=== PATIENT | female | born 1955 | race Caucasian/White ===

== ENCOUNTER → 2019-06-14 14:01 | Outpatient (BNVA) | payer MEDICARE, MEDICAID, SELFPAY | PROVIDERS: Visit Provider Nurse Practitioner | DX: F33.0 Major depressive disorder, recurrent, mild (principal); F41.1 Generalized anxiety disorder | CPT/HCPCS: 99213 ==

== ENCOUNTER 2019-06-20 16:00 | Outpatient (CLI) | payer MEDICARE, MEDICAID, SELFPAY ==
--- NOTE | 2019-06-20 16:20 | XR_ITS ---
WS: [id number] KNEE LEFT TECHNIQUE: 2 views of the left knee CLINICAL INFORMATION: OSTEOARTHRITIS OF LEFT KNEE COMPARISON: None. FINDINGS: Osteopenia. Advanced degenerative arthritis medial joint compartment with [id number] articulation. Hypertrophic changes along the joint line. Hypertrophic patella. No significant effusion. XR/XR knee LT 1-2V [id number] IMPRESSION: Advanced degenerative arthritis left knee with [id number] articulation the me dial joint compartment
--- NOTE | 2019-06-20 16:22 | XR_ITS ---
WS: [id number] KNEE RIGHT TECHNIQUE: 3 views of the right knee CLINICAL INFORMATION: OSTEOARTHRITIS OF RT KNEE COMPARISON: None. FINDINGS: Advanced degenerative arthritis right knee worse in the medial joint compartment with severe narrowin g. Osteopenia. Hypertrophic changes along the joint line. Hypertrophic patella. No significant effusi on. XR/XR knee RT 3V* [id number] IMPRESSION: Moderate to severe joint space narrowing medial joint compartment
== END 2019-06-20 16:01 | disposition home or self-care (01) ==
LOC: RADWPI 16:06
PROVIDERS: PCP Family Medicine; Visit Provider Family Medicine
DX: M17.0 Bilateral primary osteoarthritis of knee (principal)
CPT/HCPCS: 73560; 73562

== ENCOUNTER → 2019-09-06 07:45 | Outpatient (BNVA) | payer MEDICARE, MEDICAID, SELFPAY | PROVIDERS: PCP Family Medicine; Visit Provider Nurse Practitioner | DX: F41.1 Generalized anxiety disorder (principal); F33.0 Major depressive disorder, recurrent, mild; F43.12 Post-traumatic stress disorder, chronic | CPT/HCPCS: 99213 ==

== ENCOUNTER → 2019-12-03 09:45 | Outpatient (BNVA) | payer MEDICARE, MEDICAID, SELFPAY | PROVIDERS: PCP Family Medicine; Visit Provider Nurse Practitioner | DX: F41.1 Generalized anxiety disorder (principal); F33.0 Major depressive disorder, recurrent, mild | CPT/HCPCS: 99214 ==

== ENCOUNTER → 2019-12-12 15:36 | Outpatient (BNVA) | payer MEDICARE, MEDICAID, SELFPAY | PROVIDERS: PCP Family Medicine; Visit Provider Social Worker Clinical | DX: F41.1 Generalized anxiety disorder (principal); F33.0 Major depressive disorder, recurrent, mild | CPT/HCPCS: 90834 ==

== ENCOUNTER → 2020-02-25 08:30 | Outpatient (BNVA) | payer MEDICARE, MEDICAID, SELFPAY | PROVIDERS: PCP Family Medicine; Visit Provider Nurse Practitioner | DX: F41.1 Generalized anxiety disorder (principal); F33.0 Major depressive disorder, recurrent, mild | CPT/HCPCS: 99213 ==

== ENCOUNTER → 2020-05-20 08:29 | Outpatient (BNVA) | payer MEDICARE, MEDICAID, SELFPAY | PROVIDERS: PCP Family Medicine; Visit Provider Nurse Practitioner | DX: F41.1 Generalized anxiety disorder (principal); F33.0 Major depressive disorder, recurrent, mild | CPT/HCPCS: 99214 ==

== ENCOUNTER → 2020-08-04 09:24 | Outpatient (BNVA) | payer MEDICARE, MEDICAID, SELFPAY | PROVIDERS: PCP Family Medicine; Visit Provider Nurse Practitioner | DX: F41.1 Generalized anxiety disorder (principal); F33.0 Major depressive disorder, recurrent, mild | CPT/HCPCS: 99214 ==

== ENCOUNTER → 2020-10-29 08:02 | Outpatient (BNVA) | payer MEDICARE, MEDICAID, SELFPAY | PROVIDERS: PCP Family Medicine; Visit Provider Nurse Practitioner | DX: F41.1 Generalized anxiety disorder (principal); F33.0 Major depressive disorder, recurrent, mild | CPT/HCPCS: 99214 ==

== ENCOUNTER → 2021-01-07 07:42 | Outpatient (BNVA) | payer MEDICARE, MEDICAID, SELFPAY | PROVIDERS: PCP Family Medicine; Visit Provider Nurse Practitioner | DX: F41.1 Generalized anxiety disorder (principal); F33.0 Major depressive disorder, recurrent, mild | CPT/HCPCS: 99214 ==

== ENCOUNTER → 2022-11-17 16:41 | Outpatient (BNVA) | payer MEDICARE, MEDICAID, SELFPAY | PROVIDERS: PCP Family Medicine; Visit Provider Emergency Medicine | DX: E66.9 Obesity, unspecified (principal) | CPT/HCPCS: 82306; 84443 ==

== ENCOUNTER → 2024-05-13 08:32 | Outpatient (BNVA) | payer MEDICARE, SELFPAY | PROVIDERS: PCP Family Medicine; Visit Provider Family Medicine | DX: E03.9 Hypothyroidism, unspecified (principal); I10 Essential (primary) hypertension; R73.03 Prediabetes; M25.562 Pain in left knee; F41.1 Generalized anxiety disorder; F33.0 Major depressive disorder, recurrent, mild; K58.9 Irritable bowel syndrome, unspecified; G47.00 Insomnia, unspecified; I89.0 Lymphedema, not elsewhere classified; K08.9 Disorder of teeth and supporting structures, unspecified; G89.29 Other chronic pain; Z12.31 Encounter for screening mammogram for malignant neoplasm of breast; R01.1 Cardiac murmur, unspecified | CPT/HCPCS: 80053; 80061; 83036; 84439; 84443; 85025 ==

== ENCOUNTER 2024-07-22 15:07 | Emergency (ER) | payer MEDICARE, MEDICAID, SELFPAY ==
[2024-07-22 15:28] VITALS: BP 123/80; PULSE 69; RESP 16; TEMP 37.2; O2SAT 100
--- NOTE | 2024-07-22 16:12 | W.ED.BACK ---
Documented by User: CANDY Brothers 07/22/24 16:46 HPI - Back Pain/Injury General: Chief Complaint: Back Pain/Injury Stated Complaint: L side back pain Time Seen by Provider: 07/22/24 15:45 Source: patient Mode of arrival: wheelchair Limitations: no limitations History of Present Illness: Patient is a 68-year-old female presents to ED today with a complaint of left lower back pain over the past 2 days or so. She states she has a longstanding history of sciatica. She feels like her pain starts in her left lower back and radiates around into her groin and down the anterior aspect of her left upper leg as well as into her buttock. No known injury or trauma. She does not complain of numbness, tingling, loss of sensation to the extremity. She has not noticed any color or temperature changes. She is reporting trouble walking secondary to the pain that she feels like it spasms . She is not complaining of any urinary urgency or frequency or hematuria. No history of kidney or ureterolithiasis. She denies abdominal pain. MD elicited complaint: back pain Pertinent past history: prior back pain Onset (ago): day(s) Timing: constant Severity: severe Pain scale (0-10): 10 Similar Symptoms Previously: Yes Quality: burning Location: lumbar spine and left lower back Radiation: groin, buttocks and left upper leg Exacerbating factors: movement Relieving factors: none Associated symptoms: Reports difficulty walking; Deny abdominal pain, chills, dysuria, fatigue, fever(s) or hematuria Work related injury: No Related Data Home Medications ?Medication ?Instructions ?Recorded ?Confirmed amlodipine 10 mg tablet 10 mg PO DAILY 05/13/24 05/20/24 furosemide 40 mg tablet (Lasix) 20 mg PO DAILY 05/13/24 05/20/24 linaclotide 290 mcg capsule 290 mcg PO DAILY 05/13/24 05/20/24 (Linzess) Previous Rx's ?Medication ?Instructions ?Recorded estradiol 0.05 mg/24 hr weekly 1 patch topical .Weekly #4 ea 07/20/20 transdermal patch (Climara) meloxicam 7.5 mg tablet 7.5 mg PO DAILY #30 tabs 05/13/24 Synthroid 100 mcg tablet 100 mcg PO DAILY #90 tabs 05/15/24 (levothyroxine) Prozac 20 mg capsule (fluoxetine) 20 mg PO DAILY #30 caps 05/20/24 alprazolam 0.5 mg tablet (Xanax) 0.5 mg PO DAILY PRN anxiety 30 05/20/24 days #30 tabs zolpidem 12.5 mg tablet,extended 12.5 mg PO .at bed 30 days #30 tabs 05/20/24 release,multiphase hydroxyzine HCl 10 mg tablet 10 mg PO TID PRN itching #60 tabs 06/25/24 potassium chloride 10 mEq 10 meq PO DAILY #90 tabs 07/03/24 tablet,extended release atenolol 25 mg tablet 25 mg PO DAILY #90 tabs 07/08/24 methocarbamol 500 mg tablet 1,000 mg (2 x 500 mg) PO Q8H #30 07/22/24 tabs prednisone 10 mg tablet 10 mg PO DAILY 6 days #20 tabs 07/22/24 Allergies Allergy/AdvReac Type Severity Reaction Status Date / Time pseudoephedrine (From AdvReac Severe Rash And Verified 07/22/24 15:31 Actifed) constricts breathing Sulfa (Sulfonamide AdvReac Severe Rash & Verified 07/22/24 15:31 Antibiotics) breathing problems triprolidine (From Actifed) AdvReac Severe Rash & Verified 07/22/24 15:31 breathing problems clonazepam (From Klonopin) AdvReac Intermediate Makes mind Verified 07/22/24 15:31 race morphine AdvReac Intermediate Hallucinate Verified 07/22/24 15:31 Review of Systems Const: Denies: fever(s), chills, body aches, fatigue or malaise Card: Denies: chest pain Resp: Denies: dyspnea GI: Denies: abdominal pain : Denies: flank pain, dysuria or hematuria Musc: Reports: back pain; Denies: neck pain, extremity pain, extremity swelling, joint pain, joint swelling or joint redness Neuro: Reports: difficulty walking; Denies: numbness in extremities, weakness in extremities or sensory changes PFSH ED PFSH: Medical History Pre-diabetes Insomnia IBS (irritable bowel syndrome) Hypothyroidism Essential hypertension Psychiatric care Obesity Generalized anxiety disorder Major depressive disorder, recurrent, mild Surgical History H/O: hysterectomy History of tonsillectomy H/O lumpectomy Social History Smoking and tobacco/nicotine status: never used tobacco/nicotine Alcohol intake: never Substance/Drug Use: never Female Reproductive History: Spontaneous abortions: No Physical Exam Const: COMMON NORMALS: no acute distress, patient oriented x3, no limitations, alert and well nourished GENERAL APPEARANCE: cooperative NUTRITIONAL APPEARANCE: overweight ORIENTATION/CONSCIOUSNESS: Yes awake, Yes oriented to person, Yes oriented to place and Yes oriented to time OTHER: uncomfortable at times due to back pain Resp: COMMON NORMALS: normal respiratory effort and clear to auscultation bilaterally AUSCULTATION: clear to auscultation bilaterally Cardio: COMMON NORMALS: regular rate and regular rhythm RATE: regular rate RHYTHM: regular rhythm GI: COMMON NORMALS: Normal to inspection, nondistended, normoactive bowel sounds present, Soft to palpation, non-tender and no masses PALPATION: Yes Soft to palpation : COMMON NORMALS: Yes no CVA tenderness BLADDER/KIDNEY EXAM: Yes no CVA tenderness Back/Pelvis: COMMON NORMALS: no CVA tenderness, thoracic and lumbar spine normal to inspection and straight leg raise negative bilaterally LUMBAR SPINE/LOWER BACK: No lumbar spinal tenderness PELVIS: Yes sciatic notch tenderness SACROILIAC JOINTS: Yes SI joint(s) abnormal SI joint details: tender to palpation SACRUM: no tenderness COCCYX: no tenderness BACK IMAGE (FEMALE):  1. TTP Extremity: COMMON NORMALS: normal to inspection, full ROM, capillary refill normal, no joint enlargement, no clubbing, cyanosis or edema, no calf tenderness and no pedal edema GENERAL: Yes normal exam except as noted Neuro: COMMON NORMALS: patient oriented x3, moves all extremities, no focal motor deficits and no sensory deficits noted SENSORIUM/ORIENTATION: Yes alert, Yes oriented to person, Yes oriented to place and Yes oriented to time Skin: COMMON NORMALS: no rashes or lesions noted GENERAL SKIN EXAM: no rashes or lesions noted Course Vital Signs: Vital signs: Vital Signs Temperature 99.0 F 07/22/24 15:28 Pulse Rate 69 07/22/24 15:28 Respiratory Rate 16 07/22/24 15:28 Blood Pressure 123/80 07/22/24 15:28 Pulse Oximetry 100 07/22/24 15:28 Oxygen Delivery Me thod Room Air 07/22/24 15:28 Discharge Plan Discharge Patient Disposition: Home Clinical Impression: Low back pain radiating to left leg Condition: Stable Prescriptions: New methocarbamol 500 mg tablet 1,000 mg PO Q8H Qty: 30 0RF prednisone 10 mg tablet 10 mg PO DAILY 6 Days Qty: 20 0RF Rx Instructions: Take 5 tabs on day 1-2, 4 tabs on day 3, 3 tabs on day 4, 2 tabs on day 5, and 1 tab on day 6 No Action amlodipine 10 mg tablet 10 mg PO DAILY furosemide [Lasix] 40 mg tablet 20 mg PO DAILY Linzess 290 mcg capsule 290 mcg PO DAILY meloxicam 7.5 mg tablet 7.5 mg PO DAILY Qty: 30 0RF alprazolam [Xanax] 0.5 mg tablet 0.5 mg PO DAILY PRN (Reason: anxiety) 30 Days Qty: 30 1RF Rx Instructions: Must last 30days zolpidem 12.5 mg tablet,ext release multiphase 12.5 mg PO .at bed 30 Days Qty: 30 1RF fluoxetine [Prozac] 20 mg capsule 20 mg PO DAILY Qty: 30 1RF estradiol [Climara] 0.05 mg/24 hr patch weekly 1 patch topical .Weekly Qty: 4 12RF levothyroxine [Synthroid] 100 mcg tablet 100 mcg PO DAILY Qty: 90 1RF hydroxyzine HCl 10 mg tablet 10 mg PO TID PRN (Reason: itching) Qty: 60 0RF potassium chloride 10 mEq tablet extended release 10 meq PO DAILY Qty: 90 0RF atenolol 25 mg tablet 25 mg PO DAILY Qty: 90 0RF Discharge Orders: Discharge ED (Routine); Ordered 07/22/24 Ordered By: Elia Jefferson Referrals: Usman Brown MD [Primary Care Provider] - Activity Restrictions/Additional Instructions: Please follow-up with your primary care provider for further evaluation of your lower back pain. You may return the emergency department for worsening pain, numbness, tingling, loss of sensation to your leg, trouble walking, severe abdominal pain, blood in your urine, or any other concerns you may have. Print Language: Citizen [place] Coding Level of Care Code ED Pearl Restorer for Chg Fwd Documented by User: CANDY Laurent 07/22/24 18:10 HPI - Back Pain/Injury General: Chief Complaint: Back Pain/Injury Stated Complaint: L side back pain Time Seen by Provider: 07/22/24 15:45 Related Data Home Medications ?Medication ?Instructions ?Recorded ?Confirmed amlodipine 10 mg tablet 10 mg PO DAILY 05/13/24 05/20/24 furosemide 40 mg tablet (Lasix) 20 mg PO DAILY 05/13/24 05/20/24 linaclotide 290 mcg capsule 290 mcg PO DAILY 05/13/24 05/20/24 (Linzess) Previous Rx's ?Medication ?Instructions ?Recorded estradiol 0.05 mg/24 hr weekly 1 patch topical .Weekly #4 ea 07/20/20 transdermal patch (Climara) meloxicam 7.5 mg tablet 7.5 mg PO DAILY #30 tabs 05/13/24 Synthroid 100 mcg tablet 100 mcg PO DAILY #90 tabs 05/15/24 (levothyroxine) Prozac 20 mg capsule (fluoxetine) 20 mg PO DAILY #30 caps 05/20/24 alprazolam 0.5 mg tablet (Xanax) 0.5 mg PO DAILY PRN anxiety 30 05/20/24 days #30 tabs zolpidem 12.5 mg tablet,extended 12.5 mg PO .at bed 30 days #30 tabs 05/20/24 release,multiphase hydroxyzine HCl 10 mg tablet 10 mg PO TID PRN itching #60 tabs 06/25/24 potassium chloride 10 mEq 10 meq PO DAILY #90 tabs 07/03/24 tablet,extended release atenolol 25 mg tablet 25 mg PO DAILY #90 tabs 07/08/24 methocarbamol 500 mg tablet 1,000 mg (2 x 500 mg) PO Q8H #30 07/22/24 tabs prednisone 10 mg tablet 10 mg PO DAILY 6 days #20 tabs 07/22/24 Allergies Allergy/AdvReac Type Severity Reaction Status Date / Time pseudoephedrine (From AdvReac Severe Rash And Verified 07/22/24 15:31 Actifed) constricts breathing Sulfa (Sulfonamide AdvReac Severe Rash & Verified 07/22/24 15:31 Antibiotics) breathing problems triprolidine (From Actifed) AdvReac Severe Rash & Verified 07/22/24 15:31 breathing problems clonazepam (From Klonopin) AdvReac Intermediate Makes mind Verified 07/22/24 15:31 race morphine AdvReac Intermediate Hallucinate Verified 07/22/24 15:31 PFS ED PFSH: Medical History Pre-diabetes Insomnia IBS (irritable bowel syndrome) Hypothyroidism Essential hypertension Psychiatric care Obesity Generalized anxiety disorder Major depressive disorder, recurrent, mild Surgical History H/O: hysterectomy History of tonsillectomy H/O lumpectomy Social History Smoking and tobacco/nicotine status: never used tobacco/nicotine Alcohol intake: never Substance/Drug Use: never Physical Exam Back/Pelvis: BACK IMAGE (FEMALE):  1. TTP Course Vital Signs: Vital signs: Vital Signs Temperature 99.0 F 07/22/24 15:28 Pulse Rate 69 07/22/24 15:28 Respiratory Rate 16 07/22/24 15:28 Blood Pressure 123/80 07/22/24 15:28 Pulse Oximetry 100 07/22/24 15:28 Oxygen Delivery Mt thod Room Air 07/22/24 15:28 MDM - Back Pain/Injury Medical Decision Making This patient presented for atraumatic left lower back pain, history of prolonged sciatica. Initially this patient was seen by CANDY Brothers, care was transferred to [place] to recheck the patient after medications given here. She had no reports of urinary symptoms and no concerning red flag back symptoms or trauma. Physical exam noted to be unremarkable for any of these concerning findings. Attempted to give her medications here, however she had requested that she not be given medications until her sister/friend arrived. She obliged to receive medications here eventually and upon recheck states she was feeling mildly better. Medication sent to her pharmacy and told her if she continues to have pain she can follow-up with her regular doctor and potentially referred to Ortho/spine. Her and family in the room agree with this plan, stable for discharge home at this time. No radiology studies performed this visit Discharge Plan Discharge Patient Disposition: Home Clinical Impression: Low back pain radiating to left leg Condition: Stable Prescriptions: New methocarbamol 500 mg tablet 1,000 mg PO Q8H Qty: 30 0RF prednisone 10 mg tablet 10 mg PO DAILY 6 Days Qty: 20 0RF Rx Instructions: Take 5 tabs on day 1-2, 4 tabs on day 3, 3 tabs on day 4, 2 tabs on day 5, and 1 tab on day 6 No Action amlodipine 10 mg tablet 10 mg PO DAILY furosemide [Lasix] 40 mg tablet 20 mg PO DAILY Linzess 290 mcg capsule 290 mcg PO DAILY meloxicam 7.5 mg tablet 7.5 mg PO DAILY Qty: 30 0RF alprazolam [Xanax] 0.5 mg tablet 0.5 mg PO DAILY PRN (Reason: anxiety) 30 Days Qty: 30 1RF Rx Instructions: Must last 30days zolpidem 12.5 mg tablet,ext release multiphase 12.5 mg PO .at bed 30 Days Qty: 30 1RF fluoxetine [Prozac] 20 mg capsule 20 mg PO DAILY Qty: 30 1RF estradiol [Climara] 0.05 mg/24 hr patch weekly 1 patch topical .Weekly Qty: 4 12RF levothyroxine [Synthroid] 100 mcg tablet 100 mcg PO DAILY Qty: 90 1RF hydroxyzine HCl 10 mg tablet 10 mg PO TID PRN (Reason: itching) Qty: 60 0RF potassium chloride 10 mEq tablet extended release 10 meq PO DAILY Qty: 90 0RF atenolol 25 mg tablet 25 mg PO DAILY Qty: 90 0RF Discharge Orders: Discharge ED (Routine); Ordered 07/22/24 Ordered By: Elia Jefferson Referrals: Usman Brown MD [Primary Care Provider] - Activity Restrictions/Additional Instructions: Please follow-up with your primary care provider for further evaluation of your lower back pain. You may return the emergency department for worsening pain, numbness, tingling, loss of sensation to your leg, trouble walking, severe abdominal pain, blood in your urine, or any other concerns you may have. Print Language: Citizen [place] Coding Level of Care Code ED Pearl Restorer for Alex Prabhakar
[2024-07-22] MEDS: ketorolac 60 mg/2 mL INJ 30 MG IVP (17:12)
[2024-07-22] MEDS: dexamethasone 10 mg/mL INJ 8 MG IVP (17:14)
--- NOTE | 2024-07-22 17:22 | PC.NURSE ---
While giving IV medications pt refused the Norflex, then pt stated she would take half the Norflex, while administering 30mg of Norflex but stated I'm down take it out. and refused the rest of the Norflex. Provider notified.
--- NOTE | 2024-07-22 18:37 | PC.NURSE ---
pt and pt sister very demanding stating they want the iv out are ready to leave. refused vs.
== END 2024-07-22 18:39 | disposition home or self-care (01) ==
PROVIDERS: Emergency Provider Physician Assistant; PCP Family Medicine
DX: M54.50 Low back pain, unspecified (principal); M79.605 Pain in left leg; I10 Essential (primary) hypertension
CPT/HCPCS: 96374; 96375; 99284; J1100; J1885; J2360

== ENCOUNTER → 2024-07-30 13:49 | Outpatient (BNVA) | payer MEDICARE, MEDICAID, SELFPAY | PROVIDERS: PCP Family Medicine; Visit Provider Family Medicine | DX: M17.0 Bilateral primary osteoarthritis of knee (principal); M25.562 Pain in left knee; M17.12 Unilateral primary osteoarthritis, left knee | CPT/HCPCS: 73562 ==

== ENCOUNTER → 2024-08-19 13:55 | Outpatient (BNVA) | payer MEDICARE, MEDICAID, SELFPAY | PROVIDERS: PCP Family Medicine; Visit Provider Orthopaedic Surgery | DX: M17.12 Unilateral primary osteoarthritis, left knee (principal) | CPT/HCPCS: 99204 ==

== ENCOUNTER → 2024-10-22 14:53 | Outpatient (BNVA) | payer MEDICARE, MEDICAID, SELFPAY | PROVIDERS: PCP Family Medicine; Visit Provider Orthopaedic Surgery | DX: M17.0 Bilateral primary osteoarthritis of knee (principal) | CPT/HCPCS: 99213 ==

== ENCOUNTER → 2024-10-24 14:28 | Outpatient (BNVA) | payer MEDICARE, MEDICAID, SELFPAY | PROVIDERS: PCP Family Medicine; Visit Provider Family Medicine | DX: E03.9 Hypothyroidism, unspecified (principal); R73.03 Prediabetes | CPT/HCPCS: 80053; 83036; 84439; 84443; 85025 ==

== ENCOUNTER → 2024-12-10 13:18 | Outpatient (BNVA) | payer MEDICARE, SELFPAY | PROVIDERS: PCP Family Medicine; Visit Provider Family Medicine | DX: I10 Essential (primary) hypertension (principal) | CPT/HCPCS: 80053; 85025 ==

== ENCOUNTER 2024-12-19 12:48 | Outpatient (CLI) | payer OTHER, MEDICAID, SELFPAY ==
--- NOTE | 2024-12-19 | MM_ITS ---
WS: [id number] BILATERAL SCREENING DIGITAL TOMOSYNTHESIS MAMMOGRAM WITH CAD HISTORY: ANNUAL SCREENING COMPARISON: 10/09/2017 Bilateral CC and MLO views with tomosynthesis and synthetic mammography submitted. Computer aided detection analyzed. Breast composition: There are scattered areas of fibroglandular density. No suspicious masses, microcalcifications or architectural distortion. Scattered asymmetries and calcifications. No suspicious grouping of calcification. No distortion. Benign calcifications. MM/MM scr tomosynthesis [id number] IMPRESSION: BI-RADS: 2 - Benign. FOLLOW UP: 1 Year Follow-up
== END 2024-12-19 12:49 | disposition home or self-care (01) ==
LOC: RAD 12:49
PROVIDERS: PCP Family Medicine; Visit Provider Family Medicine
DX: Z12.31 Encounter for screening mammogram for malignant neoplasm of breast (principal); R92.323 Mammographic fibroglandular density, bilateral breasts; R92.1 Mammographic calcification found on diagnostic imaging of breast
CPT/HCPCS: 77063; 77067

== ENCOUNTER 2025-01-14 06:01 | Outpatient (CLI) | payer MEDICARE, SELFPAY ==
--- NOTE | 2025-01-14 06:15 | USCV_ITS ---
Lynn Andrew Age: 69 Gender: F : 1955 Exam Date: 01/14/2025 06:22 Ordering Phys: Usman Brown MD Technologist: [place] [facility] [place]: murmur BP: 130 / 75 HR: 56 Rhythm: Sinus Technical Quality: Adequate MEASUREMENTS (Male / Female) Normal Values 2D ECHO LV Diastolic Diameter PLAX 4.1 cm 4.2 - 5.9 / 3.9 - 5.3 cm IVS Diastolic Thickness 1.3 cm 0.6 - 1.0 / 0.6 - 0.9 cm IVS Systolic Thickness 1.6 cm LVPW Diastolic Thickness 1.3 cm 0.6 - 1.0 / 0.6 - 0.9 cm LVPW Systolic Thickness 1.5 cm LVOT Diameter 2.0 cm LV Ejection Fraction 2D Teich 63.2 % LV Ejection Fraction MOD 4C 63.9 % LV Ejection Fraction MOD 2C 68.9 % LV Ejection Fraction 2C AL 70.0 % LA Diameter 3.5 cm RA Systolic Volume 4C AL 45.2 ml RA Systolic Volume 4C MOD 44.5 ml Aorta at Sinotubular Diameter 2.4 cm IVC Diameter 2.0 cm M-MODE LA Ao Ratio MM 1.4 AV Cusp Separation MM 1.6 cm DOPPLER AV Peak Velocity 262.7 cm/s LVOT Peak Velocity 91.0 cm/s AV Area Cont Eq vti 1.2 cm squared AV Area Cont Eq pk 1.1 cm squared MV Peak Velocity 103.0 cm/s MV Area PHT 2.6 cm squared Mitral E to A Ratio 1.4 TR Peak Velocity 176.0 cm/s TR Peak Gradient 12.4 mmHg TV Peak E Velocity 74.0 cm/s PV Peak Velocity 88.0 cm/s FINDINGS Left Ventricle Normal left ventricular size and systolic function, EF 55-60%. No regional wall motion abnormalities. Right Ventricle Normal right ventricular size and systolic function. Right Atrium Normal right atrial size. Left Atrium Normal left atrial size. IA Septum Grossly normal Mitral Valve Structurally normal mitral valve. Mild mitral regurgitation. Aortic Valve Thickened aortic valve. Mild to moderate aortic stenosis with aortic valve area of 1.24 cm squared and mean gradient of 13 mmHg Tricuspid Valve Insufficient TR jet to calculate RVSP Pulmonic Valve Mild pulmonic regurgitation Pericardium Normal Aorta Normal in size IVC Appears to be normal CONCLUSIONS LV systolic function is normal with EF of 55-60% Mild mitral regurgitation Mild to moderate aortic stenosis Mild pulmonic regurgitation Moncho Cartagena MD (Electronically Signed) Final Date: 19 January 2025 12:32 S
== END 2025-01-14 06:02 | disposition home or self-care (01) ==
LOC: RAD 06:04
PROVIDERS: PCP Family Medicine; Visit Provider Family Medicine
DX: R01.1 Cardiac murmur, unspecified (principal)
CPT/HCPCS: 93306